=== PATIENT | female | born 2000 ===

== ENCOUNTER 2023-03-25 06:00 | Day surgery (SDC) | payer OTHER ==
[2023-03-20 10:40] LABS: HEMATOCRIT 31.6 % (36.0-45.00); HEMOGLOBIN 10.2 g/dL (12.0-15.00); MEAN CORPUSCULAR HEMOGLOBIN 20.7 pg (27.00-32.0); MEAN CORPUSCULAR HGB CONC 32.2 g/dl (32.0-36.0); PLATELET COUNT 289 K/uL (150-450); RED BLOOD COUNT 4.91 M/uL (4.00-6.00); RED CELL DISTRIBUTION WIDTH 17.6 % (11.5-14.5)
[2023-03-20 10:40] LABS: URINE APPEARANCE Clear; URINE BILIRRUBIN Negative (NEGATIVE); URINE COLOR Yellow; URINE GLUCOSE Negative (NEGATIVE); URINE LEUKOCYTE Negative; URINE NITRATE Negative; URINE PROTEIN Negative (NEGATIVE)
[2023-03-20 10:42] LABS: MEAN CELL VOLUME 64.4 fL (80.00-100.00)
[2023-03-20 10:45] LABS: URINE BACTERIA 922.2 uL (0.0-1933); URINE RBC 24.8 uL (0.0-20.8); URINE WBC 5.5 uL (0.0-23.2)
[2023-03-20 10:49] LABS: URINE BLOOD TRACE
[2023-03-20 11:20] LABS: INR 1.02; PARTIAL THROMBOPLASTIN TIME 28.8 SECONDS (22.0-34.0); PROTHROMBIN TIME 10.7 SECONDS (9.0-11.5)
[2023-03-20 11:33] LABS: ALBUMIN 3.6 gm/dL (3.4-5.0); BILIRUBIN TOTAL 1.28 mg/dL (0.3-1.2); CALCIUM 8.7 mg/dL (8.5-10.1); CREATININE SERUM 0.71 mg/dL (0.55-1.02); GFR 101.13; POTASSIUM 4.13 mEq/L (3.5-5.1); T4 FREE 1.25 NG/ML (0.76-1.46); TOTAL PROTEIN 7.6 gm/dL (6.4-8.2); TSH 0.644 uIU/mL (0.358-3.74)
[2023-03-21 06:06] LABS: FOLLICLE STIMULATING HORMONE 4.8 mIU/mL (.); LEUTEINIZING HORMONE 4.4 mIU/mL (.); PROGESTERONA 0.1 ng/mL (.)
[2023-03-22 18:06] LABS: ESTRIOL < 0.1 ng/mL (.)
== END 2023-03-25 14:50 | disposition home or self-care (01) ==
LOC: CIR.AMB 06:00
PROVIDERS: ATTEND Obstetrics & Gynecology
DX: N87.9 Dysplasia of cervix uteri, unspecified (principal); D39.0 Neoplasm of uncertain behavior of uterus; N84.0 Polyp of corpus uteri; N93.8 Other specified abnormal uterine and vaginal bleeding; Z20.822 Contact with and (suspected) exposure to COVID-19